=== PATIENT | female | born 1995 | race African-American/Black ===

== ENCOUNTER 2017-02-19 16:56 | Emergency (ER) | payer OTHER ==
[~2017-02-19] VITALS: Ht 172.7 cm; Wt 90.0 kg
[2017-02-19 17:09] VITALS: BP 134/76; PULSE 77; RESP 14; TEMP 97.8; O2SAT 100
--- NOTE | 2017-02-19 17:31 | PD ---
HPI Chief Complaint: Headache Time Seen by Provider: 17:24 Travel History International Travel<30 days: No Contact w/Intl Traveler<30days: No Traveled to known affect area: No History of Present Illness HPI PATIENT C/O HEADACHE, FOR 2 DAYS, FRONTAL, CURRENTLY 02/24, NO VISUAL DISTURBANCE...NO FEVER/N/V/D/CP/ABD PAIN AT THIS MOMENT...NO ALLEVIATING OR AGGRAVATING FACTORS. PFSH Past Medical History ?: Unknown LMP: 01/23/17 Social History Tobacco Use: No Allergies-Medications (Allergen,Severity, Reaction): Coded Allergies: Penicillin (Unverified Allergy, Mild, 02/19/17) Reported Meds & Prescriptions Reported Meds & Active Scripts Active Zofran Odt (Ondansetron Odt) 4 Mg Tab 4 Mg SL Q6HR PRN Ultram (Tramadol HCl) 50 Mg Tab 50 Mg PO Q4H PRN Review of Systems Except as stated in HPI: all other systems reviewed are Neg HENT: Positive: Headaches Physical Exam Narrative GENERAL: SKIN: Warm and dry. HEAD: Atraumatic. Normocephalic. EYES: Pupils equal and round. No scleral icterus. No injection or drainage. ENT: No nasal bleeding or discharge. Mucous membranes pink and moist. NECK: Trachea midline. No JVD. CARDIOVASCULAR: Regular rate and rhythm. RESPIRATORY: No accessory muscle use. Clear to auscultation. Breath sounds equal bilaterally. GASTROINTESTINAL: Abdomen soft, non-tender, nondistended. Hepatic and splenic margins not palpable. MUSCULOSKELETAL: Extremities without clubbing, cyanosis, or edema. No obvious deformities. NEUROLOGICAL: Awake and alert. No obvious cranial nerve deficits. Motor grossly within normal limits. Five out of 5 muscle strength in the arms and legs. Normal speech. PSYCHIATRIC: Appropriate mood and affect; insight and judgment normal. Data Data Last Documented VS Vital Signs Date Time Temp Pulse Resp B/P Pulse Ox O2 Delivery O2 Flow Rate FiO2 02/19/17 17:09 97.8 77 14 134/76 100 Orders Ed Urine Pregnancytest Poc (02/19/17 17:24) Ketorolac Inj (Toradol Inj) (02/19/17 17:45) Prochlorperazine Inj (Compazine Inj) (02/19/17 17:45) MDM Medical Decision Making Medical Screen Exam Complete: Yes Emergency Medical Condition: Yes Medical Record Reviewed: Yes Differential Diagnosis RELATED V TENSION FIELD V SINUSITIS Narrative Course PATIENT HAD NEG TEST, AND PAIN LEVEL DECREASED FROM 8 TO 3/10 AFTER MEDICATED WILL D/C Diagnosis Primary Impression: TENSION HEADACHE Scripts Ondansetron Odt (Zofran Odt)4 Mg Tab4 Mg SL Q6HR PRN (Nausea/Vomiting) #12 TAB Prov:Emmanuel Hernandez MD 02/19/17 Tramadol (Ultram)50 Mg Tab50 Mg PO Q4H PRN (PAIN) #28 TAB Prov:Emmanuel Hernandez MD 02/19/17 Disposition: DISCHARGE HOME Condition: Stable Emmanuel Hernandez MD Feb 19, 2017 17:31
[2017-02-19] MEDS ORDERED: PROCHLORPERAZINE INJ 10 MG/2 ML VIAL IM ONE (17:45)
[2017-02-19] MEDS ORDERED: KETOROLAC TROMETHAMINE 60 MG/2 ML (IM) VIAL IM ONE (17:45)
[2017-02-19] MEDS ORDERED: ULTR50TA5 PO (18:10)
[2017-02-19] MEDS ORDERED: ZOFR4TAB3 SL (18:10)
== END 2017-02-19 19:18 | disposition home or self-care (01) ==
LOC: NEPD 16:56
DX: G44.209 Tension-type headache, unspecified, not intractable (principal); Z79.899 Other long term (current) drug therapy; Z88.0 Allergy status to penicillin
CPT/HCPCS: 84703; 96372; 99284; J0780; J1885